=== PATIENT | female | born 1975 | race Two or more races ===

== ENCOUNTER → 2023-04-08 07:53 | Outpatient (CLI) | payer OTHER ==
[2023-04-08 10:26] LABS: URINE APPEARANCE Clear; URINE BILIRRUBIN Negative (NEGATIVE); URINE BLOOD Negative; URINE COLOR Yellow; URINE GLUCOSE Negative (NEGATIVE); URINE LEUKOCYTE Trace; URINE NITRATE Negative; URINE PROTEIN Negative (NEGATIVE); URINE UROBILINOGEN 0.2 E.U./dl
[2023-04-08 10:30] LABS: HEMATOCRIT 43.1 % (36.0-45.00); HEMOGLOBIN 14.5 g/dL (12.0-15.00); MEAN CELL VOLUME 92.1 fL (80.00-100.00); MEAN CORPUSCULAR HGB CONC 33.7 g/dl (32.0-36.0); PLATELET COUNT 352 K/uL (150-450); RED BLOOD COUNT 4.68 M/uL (4.00-6.00); RED CELL DISTRIBUTION WIDTH 13.2 % (11.5-14.5)
[2023-04-08 10:31] LABS: URINE BACTERIA 1862.1 uL (0.0-1933); URINE EPITHELIAL CELLS 55.1 uL (0.0-38.8); URINE RBC 9.7 uL (0.0-20.8); URINE WBC 34.3 uL (0.0-23.2)
[2023-04-08 10:37] LABS: ERYTHROCYTE SEDIMENTATION RATE 14 mm/hr
[2023-04-08 10:45] LABS: ALBUMIN 3.9 gm/dL (3.4-5.0); BILIRUBIN TOTAL 0.53 mg/dL (0.3-1.2); CALCIUM 9.7 mg/dL (8.5-10.1); CHOL HDL RATIO 3.7 (0-5.0); CREATININE SERUM 0.76 mg/dL (0.55-1.02); FREE TRIODOTIRONINE 3.11 pg/ml (2.18-3.98); GFR 81.22; GLOBULINA 4.2 G/DL (2.4-3.5); POTASSIUM 4.42 mEq/L (3.5-5.1); T4 FREE 0.9 NG/ML (0.76-1.46); TOTAL PROTEIN 8.1 gm/dL (6.4-8.2); TSH 0.972 uIU/mL (0.358-3.74); URIC ACID 5.6 mg/dL (2.5-7.5)
[2023-04-09 14:58] LABS: VITAMIN D3 25 HYDROXY 23.15 ng/ml (30-120)
== END | disposition home or self-care (01) ==
LOC: LAB 07:53
PROVIDERS: ATTEND General Practice
DX: E53.9 Vitamin B deficiency, unspecified (principal); M10.071 Idiopathic gout, right ankle and foot; N39.0 Urinary tract infection, site not specified; E03.8 Other specified hypothyroidism; M06.9 Rheumatoid arthritis, unspecified; R50.9 Fever, unspecified; E78.2 Mixed hyperlipidemia; E55.9 Vitamin D deficiency, unspecified; Z12.11 Encounter for screening for malignant neoplasm of colon; E11.9 Type 2 diabetes mellitus without complications; R73.09 Other abnormal glucose

== ENCOUNTER → 2023-04-12 08:08 | Outpatient (CLI) | payer OTHER ==
[2023-04-12 10:40] LABS: ob NEGATIVE (NEGATIVE)
== END | disposition home or self-care (01) ==
LOC: LAB 08:08
PROVIDERS: ATTEND General Practice
DX: E53.9 Vitamin B deficiency, unspecified (principal); M10.071 Idiopathic gout, right ankle and foot; N39.0 Urinary tract infection, site not specified; E03.8 Other specified hypothyroidism; M06.9 Rheumatoid arthritis, unspecified; R50.9 Fever, unspecified

== ENCOUNTER 2023-04-12 08:30 | Outpatient (CLI) | payer OTHER | END 2023-04-12 08:41 | disposition home or self-care (01) | LOC: RAD 08:30 | PROVIDERS: ATTEND General Practice | DX: R07.9 Chest pain, unspecified (principal); N60.11 Diffuse cystic mastopathy of right breast; N60.12 Diffuse cystic mastopathy of left breast; Z12.31 Encounter for screening mammogram for malignant neoplasm of breast ==

== ENCOUNTER 2023-04-12 09:51 | Outpatient (CLI) | payer OTHER | END 2023-04-12 09:54 | disposition home or self-care (01) | LOC: NUCLEAR 09:51 | PROVIDERS: ATTEND General Practice | DX: Z13.820 Encounter for screening for osteoporosis (principal); M81.0 Age-related osteoporosis without current pathological fracture ==